=== PATIENT | female | born 1945 | race Caucasian/White ===

== ENCOUNTER 2020-05-17 08:00 | Outpatient (CLI) | payer MEDICARE ==
[~2020-05-17 08:00] MED LIST: ASCO500C2 PO; ASPI-496 PO; ATOR10TA PO; CALC1CAP8 PO; CHOL2000 PO; GLUC1CAP48 PO; MAGNESIUM DR64 MG PO; MULT-642 PO; OMEG1CAP24 PO
== END 2020-05-17 23:59 | disposition home or self-care (01) ==
LOC: STAR 08:00
PROVIDERS: ATTEND Surgery
DX: Z01.818 Encounter for other preprocedural examination (principal); Z11.59 Encounter for screening for other viral diseases
CPT/HCPCS: 36415; 87635